=== PATIENT | female | born 1955 | race Hispanic/Latino ===

== ENCOUNTER 2018-12-11 07:59 | Emergency (ER) | payer MEDICARE ==
[2018-12-11 08:13] VITALS: PULSE 79; RESP 18; O2SAT 99
[2018-12-11] MEDS ORDERED: Tetracaine 0.5% Ophth 2 ML BOTTLE OS STA (08:56)
--- NOTE | 2018-12-11 09:14 | ED PDOC ---
Arrival/HPI - General Chief Complaint: Eye Problem Time Seen by Provider: 12/11/18 08:10 Historian: Patient - History of Present Illness Narrative History of Present Illness (Text): 12/11/18 09:07 Pauly Woodward is a 63 year old female with no significant past medical history, who presents to the emergency department complaining of a scratched cornea to her left eye. Patient states she has scratched her cornea before and notes symptoms are similar to today's visit. Patient states her left eye feels irritated, sensitive, and notes it has been tearing since last night. Patient denies any headache, dizziness, or any other complaints. Time/Duration: 24 hours Symptom Onset: Gradual Symptom Course: Unchanged Context: Home Past Medical History - Provider Review Nursing Documentation Reviewed: Yes - Reproductive Menopause: Yes - Cardiac Hx Hypertension: Yes - Endocrine/Metabolic Hx Hypothyroidism: Yes - Psychiatric Hx Depression: Yes Hx Substance Use: No - Surgical History Other/Comment: B/L oophorectomy. Gastric Sleeve Family/Social History - Physician Review Nursing Documentation Reviewed: Yes Family/Social History: Unknown Family HX Smoking Status: Never Smoked Hx Alcohol Use: Yes Frequency of alcohol use: Socially Hx Substance Use: No Allergies/Home Meds Allergies/Adverse Reactions: Allergies No Known Allergies Allergy (Verified 12/11/18 08:13) Home Medications: Home Meds Medication Instructions Recorded Confirmed ALPRAZolam [Xanax] 0.25 mg PO DAILY PRN 12/11/18 12/11/18 Bupropion HCl [Wellbutrin Sr] 200 mg PO DAILY 12/11/18 12/11/18 Gabapentin [Neurontin] 900 mg PO TID 12/11/18 12/11/18 Lamotrigine [Lamictal] 150 mg PO DAILY 12/11/18 12/11/18 Levothyroxine [Synthroid] 75 mcg PO DAILY 12/11/18 12/11/18 Valsartan/Hydrochlorothiazide 1 tab PO DAILY 12/11/18 12/11/18 [Diovan Hct 320-25 mg Tablet] busPIRone [Buspar] 20 mg PO TID 12/11/18 12/11/18 Review of Systems - Physician Review All systems were reviewed & negative as marked: Yes - Review of Systems Constitutional: absent: Fatigue, Fevers Eyes: Eye Pain (scratched cornea to left eye. ). absent: Vision Changes ENT: absent: Hearing Changes Respiratory: absent: SOB, Cough Cardiovascular: absent: Chest Pain Gastrointestinal: absent: Abdominal Pain Skin: absent: Rash Neurological: absent: Headache, Dizziness Psychiatric: absent: Anxiety, Depression Physical Exam Vital Signs Reviewed: Yes Vital Signs Temp Pulse Resp BP Pulse Ox 12/11/18 08:09 97.8 F 79 18 116/77 99 Temperature: Afebrile Blood Pressure: Normal Pulse: Regular Respiratory Rate: Normal Appearance: Positive for: Well-Appearing, Non-Toxic, Comfortable Pain Distress: None Mental Status: Positive for: Alert and Oriented X 3 - Systems Exam Head: Present: Atraumatic, Normocephalic Pupils: Present: PERRL, Other (left pupil shape normal. Occular motion intact. Abression to left lower Quadrant of left eye. ). No: Sluggish, Non-Reactive Extroacular Muscles: Present: EOMI. No: Entrapment Conjunctiva: Present: Normal Ears: Present: NORMAL TM Neck: Present: Normal Range of Motion. No: Meningeal Signs Respiratory/Chest: Present: Clear to Auscultation, Good Air Exchange. No: Respiratory Distress, Accessory Muscle Use, Wheezes, Decreased Breath Sounds, Rhonchi Cardiovascular: Present: Regular Rate and Rhythm, Normal S1, S2. No: Murmurs Abdomen: No: Tenderness, Distention, Peritoneal Signs Back: Present: Normal Inspection. No: Midline Tenderness Upper Extremity: Present: Normal Inspection, Normal ROM. No: Cyanosis, Edema, Tenderness, Swelling Lower Extremity: Present: Normal Inspection, Normal ROM. No: Edema, Tenderness, Swelling Neurological: Present: GCS=15, Speech Normal Skin: Present: Warm, Dry, Normal Color. No: Rashes Psychiatric: Present: Alert, Oriented x 3, Normal Insight, Normal Concentration Medical Decision Making ED Course and Treatment: 12/11/18 09:23 Impression: 63 year old female who present to the emergency department complaining of a scratch cornea to left eye. Differential Diagnosis included but are not limited to: Plan: - Tetracaine -- Wood's lamp examination -- Reassess and disposition Prior Visits: Notes and results from previous visits were reviewed. Progress Notes: - Medication Orders Current Medication Orders: Discontinued Medications Tetracaine HCl (Tetracaine 0.5% Ophth Soln) 1 drop OS STAT STA Stop: 12/11/18 08:57 - Scribe Statement The provider has reviewed the documentation as recorded by the Scribe All medical record entries made by the Scribe were at my direction and personally dictated by me. I have reviewed the chart and agree that the record accurately reflects my personal performance of the history, physical exam, medical decision making, and the department course for this patient. I have also personally directed, reviewed, and agree with the discharge instructions and disposition. Disposition/Present on Arrival - Present on Arrival Any Indicators Present on Arrival: No History of DVT/PE: No History of Uncontrolled Diabetes: No Urinary Catheter: No History of Decub. Ulcer: No History Surgical Site Infection Following: None - Disposition Have Diagnosis and Disposition been Completed?: Yes Diagnosis: Corneal abrasion, left Disposition: HOME/ ROUTINE Disposition Time: 09:31 Patient Plan: Discharge Patient Problems: Current Active Problems Problem Status Onset Corneal abrasion, left Acute Condition: STABLE Discharge Instructions (ExitCare): Corneal Abrasion (DC) Print Language: VINCENTIAN Additional Instructions: All medical record entries made by the Scribe were at my direction and personally dictated by me. I have reviewed the chart and agree that the record accurately reflects my personal performance of the history, physical exam, medical decision making, and the department course for this patient. I have also personally directed, reviewed, and agree with the discharge instructions and disposition. Please follow up with your audit intern in 10 days Only apply 1-2 drops of tetracaine into the LEFT eye every 2hours(DO NOT EXCEED 20 drops per day) Please take antibiotics as prescribed Prescriptions: Tobramycin 0.3% [Tobrex 0.3% Ophth Soln] 2 drop OD Q4H #50 bottle Referrals: Forest Dye MD [Staff Provider] - Follow up with primary Forms: [employer] (Ivorian)
[2018-12-11 09:43] VITALS: BP 126/59; TEMP 97.5
== END 2018-12-11 09:41 | disposition home or self-care (01) ==
LOC: ED 07:59
DX: S05.02XA Injury of conjunctiva and corneal abrasion without foreign body, left eye, initial encounter (principal); X58.XXXA Exposure to other specified factors, initial encounter

== ENCOUNTER 2018-12-15 12:18 | Emergency (ER) | payer MEDICARE ==
[2018-12-15 12:26] VITALS: BMI 43.1
[2018-12-15 12:40] VITALS: RESP 18
[2018-12-15] MEDS ORDERED: Sodium Chloride 0.9% 1,000 ML IV SCH (12:45)
--- NOTE | 2018-12-15 12:49 | ED PDOC ---
Arrival/HPI - General Chief Complaint: Weakness/Neurological Deficit Historian: Patient - History of Present Illness Narrative History of Present Illness (Text): 12/15/18 12:52 63 year old female, whose past medical history includes glaucoma, macular dege neration, hypertension, hypothyroidism, bipolar disorder, and sleep apnea, who presents to the emergency department complaining of 2 episodes of involuntary right sided lip movement onset 11:30AM this morning. Patient reports she was fixing her hair while on the phone this morning when she noticed the right side of her lip "turned upward", resolved and appeared again within 10 minutes. She denied headache. Denies numbness. No difficulty speaking. No dizziness. No weakness or numbness to arms or legs. Denies any recent dental pain. Denies facial pain. Denies slurred speech. Denies unsteadiness. States intermittently for past several months she gets intermittent blurred vision. States she has prior hx of glaucoma and denies acute visual loss or change. NO trauma. NO difficulty swallowing. 12/15/18 22:20 Time/Duration: 1-3 hours Symptom Onset: Gradual Symptom Course: Unchanged Activities at Onset: Light Context: Home Past Medical History - Provider Review Nursing Documentation Reviewed: Yes - Infectious Disease Hx of Infectious Diseases: None - Cardiac Hx Hypertension: Yes - Endocrine/Metabolic Hx Hypothyroidism: Yes - Psychiatric Hx Depression: Yes Hx Substance Use: No - Surgical History Other/Comment: B/L oophorectomy. Gastric Sleeve Family/Social History - Physician Review Nursing Documentation Reviewed: Yes Family/Social History: Unknown Family HX Smoking Status: Never Smoked Hx Alcohol Use: Yes Hx Substance Use: No Allergies/Home Meds Allergies/Adverse Reactions: Allergies No Known Allergies Allergy (Verified 12/15/18 12:25) Home Medications: Home Meds Medication Instructions Recorded Confirmed ALPRAZolam [Xanax] 0.25 mg PO DAILY PRN 12/11/18 12/15/18 Bupropion HCl [Wellbutrin Sr] 200 mg PO DAILY 12/11/18 12/15/18 Gabapentin [Neurontin] 900 mg PO TID 12/11/18 12/15/18 Lamotrigine [Lamictal] 150 mg PO DAILY 12/11/18 12/15/18 Levothyroxine [Synthroid] 75 mcg PO DAILY 12/11/18 12/15/18 Valsartan/Hydrochlorothiazide 1 tab PO DAILY 12/11/18 12/15/18 [Diovan Hct 320-25 mg Tablet] busPIRone [Buspar] 20 mg PO TID 12/11/18 12/15/18 Review of Systems - Review of Systems Constitutional: absent: Fatigue, Fevers Eyes: Other (blurred vision intermittently for several months). absent: Photophobia, Eye Pain ENT: Other (right lip "turned up"). absent: Hearing Changes, Sore Throat Respiratory: absent: SOB Cardiovascular: absent: Chest Pain, Edema, Syncope Gastrointestinal: absent: Abdominal Pain, Nausea Genitourinary Female: absent: Dysuria Musculoskeletal: absent: Back Pain Skin: absent: Rash Neurological: absent: Headache, Dizziness, Focal Weakness, Gait Changes, Speech Changes, Facial Droop, Disequilibrium, Seizure Endocrine: absent: Polyuria, Polydipsia Hemo/Lymphatic: absent: Easy Bleeding Psychiatric: Anxiety. absent: Depression, Suicidal Ideation Physical Exam - Physical Exam Narrative Physical Exam (Text): 12/15/18 12:47 Head: Atraumatic. Normocephalic. NO rash or lesions. Eyes: PERRL. EOMI. Conjunctivae are not pale. Visual acuity and visual adams at baseline. No pain with eye movements. ENT: Mucous membranes are moist and intact. Oropharynx is clear and symmetric. NO gingival erythema or edema. No dental pain. NO lip edema. Neck: Supple. Full ROM. No JVD. No lymphadenopathy. No auscultated bruits. Cardiovascular: Regular rate. Regular rhythm. No pathologic murmurs. Distal pulses intact. Pulmonary/Chest: No evidence of respiratory distress. Clear to auscultation bilaterally. No wheezing, rales or rhonchi. Abdominal: Soft and non-distended. There is no tenderness. No rebound, guarding, or rigidity. No organomegaly. Good bowel sounds. Back: Nontender. Normal inspection. Extremities: No edema. No cyanosis. No clubbing. Full range of motion in all extremities. No calf tenderness. Skin: Skin is warm and dry. No petechiae. No purpura. Neurological: Alert, awake, and oriented. NO FACIAL DROOP. No facial asymmetry currently. Cranial nerves intact. Normal speech. No pronator drift. Normal gait. No focal weakness. No sensory deficits. No dysmetria. Psychiatric: Good eye contact. Mildly anxious. 12/15/18 22:26 Vital Signs Reviewed: Yes Vital Signs Temp Pulse Resp BP Pulse Ox 12/15/18 12:19 97.5 F L 71 18 118/82 96 Temperature: Afebrile Blood Pressure: Normal Pulse: Regular Respiratory Rate: Normal Appearance: Positive for: Well-Appearing, Non-Toxic, Comfortable Pain Distress: None Mental Status: Positive for: Alert and Oriented X 3 Medical Decision Making ED Course and Treatment: 12/15/18 12:47 Impression: 63 year old female presents to the emergency department complaining of involuntary right sided lip movement onset earlier today. Currently no symptoms. Progress Notes: As patient described potentially an acute deficit prior to arrival, code stroke called although patient currently asymptomatic and did not describe a facial droop or pain or speech difficulty. Her exam reveals no acute visual deficits currently and she states she has hx of macular degeneration and glaucoma and cu rrent vision is her baseline. No fever. No headache. No cranial nerve deficits. I did review history and exam with oncall neurologist. CT head unremarkable. MRI/MRA were reviewed and unremarkable. She was observed in ED for over 6 hours with no pain or complaints or any neuro deficits. NO facial swelling or stridor. No angioedema. No rash. NO gum swelling. Her exam and described symptoms currently not consistent with CVA or TIA as no neuro deficits noted or described aside from "my lip curled upward". I do not appreciate any infection or asymmetry with serial exams. Patient was advised of imaging results, limitations of imaging, but as asymptomatic after several hours of observation, will discharge with instructions to follow-up with opthamologist and neuro as well as pmd. She denies any chest pain or shortness of breath at any time. - RAD Interpretation Narrative RAD Interpretations (Text): 12/15/18 13:06 CT head reviewed by Naeem Bradford MD, shows: No acute intracranial abnormalities. No significant findings to account for the clinical presentation. 12/15/18 14:14 Chest X-ray reviewed by Joseph Akers MD, shows: No active disease. 12/15/18 18:22 Head MRI reviewed by Dr. Brayan Stephens MD, shows: Unremarkable MR angiography of the brain. Brain MRI reviewed by Dr. Brayan Stephens MD, shows: Limited age-appropriate age-related neuro degenerative changes with no evidence of an acute or subacute brain infarction appreciated at this time. No intracranial hemorrhage is appreciable either. Radiology Orders: 12/15/18 12:40 HEAD W/O (CODE STROKE) [CT] Stat CHEST PORTABLE [RAD] Stat [employer]: Radiologist - Medication Orders Current Medication Orders: Sodium Chloride (Sodium Chloride 0.9%) 1,000 mls @ 100 mls/hr IV .Q10H PABLITO - Scribe Statement The provider has reviewed the documentation as recorded by the [facility] Sc[facility] Attestation: All medical record entries made by the Scribe were at my direction and personally dictated by me. I have reviewed the chart and agree that the record accurately reflects my personal performance of the history, physical exam, medical decision making, and the department course for this patient. I have also personally directed, reviewed, and agree with the discharge instructions and disposition. Disposition/Present on Arrival - Present on Arrival Any Indicators Present on Arrival: No History of DVT/PE: No History of Uncontrolled Diabetes: No Urinary Catheter: No History of Decub. Ulcer: No History Surgical Site Infection Following: None - Disposition Have Diagnosis and Disposition been Completed?: Yes Diagnosis: Facial asymmetry Disposition: HOME/ ROUTINE Disposition Time: 18:30 Patient Plan: Discharge Condition: GOOD Additional Instructions: For any new or worsening visual symptoms, any return of any facial disturbances or distortions, any headaches, any chest pain or shortness of breath, any dizziness, any palpitations, any numbness or tingling or weakness, any unsteadiness, any loss of vision, any new or persistent symptoms, get rechecked. Follow-up with your opthomologist and your primary care doctor. Folow-up in ED or a neurologist for any return of symptoms. Referrals: Daniel Gonzalez MD [Staff Provider] - Follow up with primary Forest Dye MD [Staff Provider] - Follow up with primary Forms: [employer] (Maltese)
[2018-12-15 13:02] LABS: BASO # 0.02 K/mm3 (0.0-2.0); BASO % 0.3 % (0.0-3.0); EOS # 0.2 (0.0-0.7); EOS % 2.7 % (1.5-5.0); HEMOGLOBIN 12.7 g/dL (12.0-16.0); LYMPH # 1.7 (1.2-3.4); LYMPH % 26.5 % (22.0-35.0); MEAN CELL VOLUME 92.1 fl (80.0-105.0); MEAN CORPUSCULAR HEMOGLOBIN 30.4 pg (25.0-35.0); MEAN PLATELET VOLUME 9.8 fl (7.0-11.0); MONO # 0.7 (0.1-0.6); MONO % 11.1 % (1.0-6.0); RBC 4.18 10^6/uL (3.5-6.1); RED CELL DISTRIBUTION WIDTH 13.7 % (11.5-14.5); WHITE BLOOD COUNT 6.3 10^3/uL (4.5-11.0)
--- NOTE | 2018-12-15 13:09 | CT ---
Date of service: 12/15/2018 PROCEDURE: CT HEAD WITHOUT CONTRAST. HISTORY: Code Stroke COMPARISON: None available. TECHNIQUE: Axial computed tomography images were obtained through the head/brain without intravenous contrast. Supplemental Coronal and Sagittal projections created and reviewed. Radiation dose: Total exam DLP = 1049.79 mGy-cm. This CT exam was performed using one or more of the following dose reduction techniques: Automated exposure control, adjustment of the mA and/or kV according to patient size, and/or use of iterative reconstruction technique. FINDINGS: HEMORRHAGE: No intracranial hemorrhage. BRAIN: No mass effect or edema. No atrophy or chronic microvascular ischemic changes. VENTRICLES: Unremarkable. No hydrocephalus. CALVARIUM: Unremarkable. PARANASAL SINUSES: Unremarkable as visualized. No significant inflammatory changes. MASTOID AIR CELLS: Unremarkable as visualized. No inflammatory changes. OTHER FINDINGS: None. IMPRESSION: No acute intracranial abnormalities. No significant findings to account for the clinical presentation. Code stroke protocol: Study completed 12:56 Radiologist notified 12:59 Results conveyed verbally at 13:04. Interpretation finalized and available for review 13:05.
[2018-12-15 13:11] LABS: ALB/GLOB RATIO 1.3 (1.1-1.8); ALT/SGPT 28 U/L (7-56); AST/SGOT 34 U/L (14-36); BLOOD UREA NITROGEN 13 mg/dL (7-21); CALCIUM 8.9 mg/dL (8.4-10.5); GFR NON-AFRICAN AMERICAN > 60; HDL CHOLESTEROL 45 mg/dL (29-60)
[2018-12-15 13:22] LABS: LDL CHOLESTEROL 139 mg/dL (0-129)
[2018-12-15 13:25] LABS: TROPONIN I < 0.01 ng/mL
[2018-12-15 13:35] VITALS: TEMP 97.9
[2018-12-15 13:38] LABS: INR 1.04; PARTIAL THROMBOPLASTIN TIME 39.8 Seconds (26.9-38.3); PROTHROMBIN TIME 11.8 SECONDS (9.4-12.5)
[2018-12-15] MEDS ORDERED: Potassium Chloride 20 mEq ER Tab PO STA (14:08)
--- NOTE | 2018-12-15 14:18 | RAD ---
Date of service: 12/15/2018 HISTORY: Code Stroke COMPARISON: No prior. TECHNIQUE: 1 view obtained. FINDINGS: LUNGS: No active pulmonary disease. PLEURA: No significant pleural effusion identified, no pneumothorax apparent. CARDIOVASCULAR: No aortic atherosclerotic calcification present. Normal cardiac size. No pulmonary vascular congestion. OSSEOUS STRUCTURES: No significant abnormalities. VISUALIZED UPPER ABDOMEN: Normal. OTHER FINDINGS: None. IMPRESSION: No active disease.
[2018-12-15 14:27] VITALS: O2SAT 97
--- NOTE | 2018-12-15 18:26 | MRI ---
Date of service: 12/15/2018 PROCEDURE: Magnetic Resonance Angiography Brain HISTORY: right sided lip asymmetry, ? visual disturbance COMPARISON: None available. TECHNIQUE: 3D time of flight MR angiography of the intracranial arteries was performed. Rotating maximum intensity projection images were generated. FINDINGS: INTERNAL CAROTID ARTERIES: Unremarkable. The skull base, petrous, cavernous and supraclinoid segments are bilaterally widely patient. ANTERIOR CEREBRAL ARTERIES: Unremarkable. A1 and A2 segments are widely patent. Smaller distal branches unremarkable, as visualized. MIDDLE CEREBRAL ARTERIES: Unremarkable. M1 and M2 segments are widely patent. Perisylvian branches grossly symmetric. POSTERIOR CIRCULATION: Basilar Artery: Unremarkable. Distal Vertebral Arteries: Codominant vertebrobasilar circulation identified. Posterior Cerebral Arteries: Unremarkable. Posterior Inferior Cerebellar Arteries: Unremarkable. ANEURYSM/ VASCULAR MALFORMATIONS: None. OTHER FINDINGS: None. IMPRESSION: Unremarkable MR angiography of the brain.
--- NOTE | 2018-12-15 18:31 | MRI ---
Date of service: 12/15/2018 PROCEDURE: MRI BRAIN WITHOUT CONTRAST HISTORY: right lip asymmetry, resolved COMPARISON: None available. TECHNIQUE: Multiplanar, multisequence MR images of the brain were obtained without intravenous contrast enhancement. FINDINGS: HEMORRHAGE: None DWI: No evidence of an acute or early subacute infarction. BRAIN PARENCHYMA: Good corticomedullary differentiation is seen. Proportional, limited, bifrontal-biparietal subcortical white matter signal changes compatible with chronic microangiopathy. No additional parenchymal signal abnormalities are identified bilaterally no suspicious extra-axial fluid collection is identified and the midline brain anatomy appears grossly nonfocal as imaged. There is no mass effect throughout. VENTRICLES: Unremarkable. No hydrocephalus. CRANIUM: Unremarkable. ORBITS: Grossly unremarkable. PARANASAL SINUSES/MASTOIDS: Clear VASCULAR SYSTEM: Skull base flow voids intact. OTHER FINDINGS: None. IMPRESSION: Limited age-appropriate age-related neuro degenerative changes with no evidence of an acute or subacute brain infarction appreciated at this time. No intracranial hemorrhage is appreciable either.
[2018-12-15 18:50] VITALS: BP 111/70; PULSE 60
--- NOTE | 2018-12-15 19:02 | CARD ---
APPROVED REPORT Date of service: 12/15/2018 EKG Measurement Heart [id number] <Conclusion> Normal sinus rhythm Cannot exclude Inferior infarct, age undetermined Anteroseptal infarct, age undetermined CCR NDSTT abnormalities Abnormal ECG
== END 2018-12-15 18:57 | disposition home or self-care (01) ==
LOC: ED 12:18
DX: Q67.0 Congenital facial asymmetry (principal); E03.9 Hypothyroidism, unspecified; I10 Essential (primary) hypertension; H35.30 Unspecified macular degeneration; H40.9 Unspecified glaucoma; F31.9 Bipolar disorder, unspecified
CPT/HCPCS: 70450; 70544; 70551; 71045; 80053; 80061; 82948; 83036; 84484; 85025; 85610; 85730; 86850; 86900; 93005; 96360; 96361; 99285; J7030

== ENCOUNTER 2018-12-23 10:34 | Emergency (ER) | payer MEDICARE ==
[2018-12-23 10:35] VITALS: BMI 43.1
[2018-12-23 11:02] VITALS: RESP 18; TEMP 98.9
--- NOTE | 2018-12-23 11:28 | ED PDOC ---
Arrival/HPI - General Chief Complaint: Lower Extremity Problem/Injury Historian: Patient - History of Present Illness Narrative History of Present Illness (Text): 12/23/18 11:20 63 year old female, with a Past medical history of hypertension, hypothyroidism, bipolar disorder, glaucoma, macular degeneration, and sleep apnea, who presents to the emergency department complaining of right leg pain, alleviated with elevation, s/p slipping on foot earlier today. Patient reports she was getting out of her car earlier today when she slipped on her foot. She denies any fall. Patient reports she had a fall 6 years ago and states she is scheduled for surgery this fall. Patient endorses a shooting pain from her knees to her ankle. She also reports difficulty bending her knees and walking, and states she can only walk sideways. She endorses using a pain relieving path and Tylenol, with slight relief. Patient reports pain is 5/10 presently. She endorses swelling. She denies any headaches, dizziness, fevers, chills, back pain, abdominal pain, or any other complaints. Time/Duration: 24 hours Symptom Onset: Gradual Symptom Course: Unchanged Activities at Onset: Light Context: Home Past Medical History - Provider Review Nursing Documentation Reviewed: Yes - Infectious Disease Hx of Infectious Diseases: None - Cardiac Hx Hypertension: Yes - Endocrine/Metabolic Hx Hypothyroidism: Yes - Psychiatric Hx Depression: Yes Hx Substance Use: No - Surgical History Other/Comment: B/L oophorectomy. Gastric Sleeve - Anesthesia Hx Anesthesia: Yes Hx Anesthesia Reactions: No Hx Malignant Hyperthermia: No Family/Social History - Physician Review Nursing Documentation Reviewed: Yes Family/Social History: Unknown Family HX Smoking Status: Never Smoked Hx Alcohol Use: Yes Hx Substance Use: No Allergies/Home Meds Allergies/Adverse Reactions: Allergies No Known Allergies Allergy (Verified 12/15/18 12:25) Home Medications: Home Meds Medication Instructions Recorded Confirmed ALPRAZolam [Xanax] 0.25 mg PO DAILY PRN 12/11/18 12/15/18 Bupropion HCl [Wellbutrin Sr] 200 mg PO DAILY 12/11/18 12/15/18 Gabapentin [Neurontin] 900 mg PO TID 12/11/18 12/15/18 Lamotrigine [Lamictal] 150 mg PO DAILY 12/11/18 12/15/18 Levothyroxine [Synthroid] 75 mcg PO DAILY 12/11/18 12/15/18 Valsartan/Hydrochlorothiazide 1 tab PO DAILY 12/11/18 12/15/18 [Diovan Hct 320-25 mg Tablet] busPIRone [Buspar] 20 mg PO TID 12/11/18 12/15/18 Review of Systems - Physician Review All systems were reviewed & negative as marked: Yes - Review of Systems Constitutional: absent: Fevers Cardiovascular: absent: Chest Pain Gastrointestinal: absent: Abdominal Pain Musculoskeletal: Other (+right leg pain). absent: Back Pain, Neck Pain Neurological: absent: Headache, Dizziness Physical Exam Vital Signs Reviewed: Yes Vital Signs Temp Pulse Resp BP Pulse Ox 12/23/18 10:35 98.9 F 68 18 118/61 100 Temperature: Afebrile Blood Pressure: Normal Pulse: Regular Respiratory Rate: Normal Appearance: Positive for: Well-Appearing, Non-Toxic, Comfortable Pain Distress: None Mental Status: Positive for: Alert and Oriented X 3 - Systems Exam Head: Present: Atraumatic, Normocephalic Pupils: Present: PERRL Extroacular Muscles: Present: EOMI Conjunctiva: Present: Normal Mouth: Present: Moist Mucous Membranes Neck: Present: Normal Range of Motion Respiratory/Chest: Present: Clear to Auscultation, Good Air Exchange. No: Respiratory Distress, Accessory Muscle Use Cardiovascular: Present: Regular Rate and Rhythm, Normal S1, S2. No: Murmurs Abdomen: No: Tenderness, Distention, Peritoneal Signs Back: Present: Normal Inspection Upper Extremity: Present: Normal Inspection. No: Cyanosis, Edema Lower Extremity: Present: Normal Inspection, NORMAL PULSES (palpable pulse at dorsalis pedis, positive pedal pulse intact.), Tenderness (tenderness to palpation on medial side of knee). No: Edema, Normal ROM (limited ROM. Unable to flex knee ), Erythema Neurological: Present: GCS=15, Speech Normal Skin: Present: Warm, Dry, Normal Color. No: Rashes Psychiatric: Present: Alert, Oriented x 3, Normal Insight, Normal Concentration Medical Decision Making ED Course and Treatment: 12/23/18 11:17 Impression: 63 year old female presents to the emergency department complaining of right leg pain s/p twisting her ankle earlier today. Differential Diagnosis included but are not limited to: Plan: -- CT right knee -- X-ray right knee -- Reassess and disposition Prior Visits: Notes and results from previous visits were reviewed. Progress Notes: - RAD Interpretation Narrative RAD Interpretations (Text): 12/23/18 12:41 CT right knee reviewed by Jimmy Ruiz MD, shows: Moderate-sized joint effusion. The study is otherwise unremarkable 12/23/18 13:12 Chest X-ray reviewed by Romy Hawley MD, shows: Osseous demineralization. Degenerative changes. Radiology Orders: 12/23/18 11:07 KNEE W PATELLA RIGHT 3 VIEW [RAD] Stat Dietitian Assistant: Radiologist - Scribe Statement The provider has reviewed the documentation as recorded by the Scribe Provider Attestation: Kashif Barnes All medical record entries made by the Scribe were at my direction and personally dictated by me. I have reviewed the chart and agree that the record accurately reflects my personal performance of the history, physical exam, medical decision making, and the department course for this patient. I have also personally directed, reviewed, and agree with the discharge instructions and disposition. Disposition/Present on Arrival - Present on Arrival Any Indicators Present on Arrival: No History of DVT/PE: No History of Uncontrolled Diabetes: No Urinary Catheter: No History of Decub. Ulcer: No History Surgical Site Infection Following: None - Disposition Have Diagnosis and Disposition been Completed?: Yes Diagnosis: Knee contusion, Knee effusion Disposition: HOME/ ROUTINE Disposition Time: 13:05 Patient Plan: Discharge Patient Problems: Current Active Problems Problem Status Onset Knee contusion Acute Knee effusion Acute Condition: STABLE Discharge Instructions (ExitCare): Contusion (DC) Print Language: MALAY Additional Instructions: All medical record entries made by the Scribe were at my direction and personally dictated by me. I have reviewed the chart and agree that the record accurately reflects my personal performance of the history, physical exam, medical decision making, and the department course for this patient. I have also personally directed, reviewed, and agree with the discharge instructions and disposition. Please follow up with your orthopedic surgeon with your films Prescriptions: Naproxen 500 mg PO BID #10 tablet Referrals: Rosario Fofana MD [Medical Doctor] - Follow up with primary [facility] at [facility] [place] [Outside] - Follow up with primary Forms: [employer] (Norwegian)
--- NOTE | 2018-12-23 12:29 | CT ---
Date of service: 12/23/2018 PROCEDURE: CT of the right knee HISTORY: unable to flex the knee COMPARISON: TECHNIQUE: Radiation dose: Total exam DLP = 344 mGy-cm. This CT exam was performed using one or more of the following dose reduction techniques: Automated exposure control, adjustment of the mA and/or kV according to patient size, and/or use of iterative reconstruction technique. FINDINGS: There is a moderate joint effusion. There is no evidence of fracture. There is no evidence of quadriceps or patellar tendon tear. There is no muscular edema or hemorrhage. IMPRESSION: Moderate-sized joint effusion. The study is otherwise unremarkable
--- NOTE | 2018-12-23 12:49 | RAD ---
PROCEDURE: Right Knee Radiographs. Three views. HISTORY: knee pain COMPARISON: Left knee CT performed 12/23/18 FINDINGS: BONES: No acute displaced fracture. Degenerative changes including tenting of the intercondylar notch. Osseous demineralization limits evaluation for acute fracture lines. 1.2 cm sclerotic focus within the medial left proximal tibia. JOINTS: No dislocation. Medial compartment joint space narrowing. JOINT EFFUSION: Small suprapatellar joint effusion. OTHER FINDINGS: None. IMPRESSION: Osseous demineralization. Degenerative changes. Small suprapatellar joint effusion. No acute displaced fracture or dislocation identified.
[2018-12-23] MEDS ORDERED: Naproxen 550 mg Tab PO STA (13:28)
[2018-12-23 13:57] VITALS: BP 120/71; PULSE 74; O2SAT 99
== END 2018-12-23 13:54 | disposition home or self-care (01) ==
LOC: ED 10:34
DX: S80.01XA Contusion of right knee, initial encounter (principal); X50.1XXA Overexertion from prolonged static or awkward postures, initial encounter; M25.461 Effusion, right knee; I10 Essential (primary) hypertension